=== PATIENT | female | born 1975 | race Caucasian/White ===

== ENCOUNTER 2018-03-20 01:45 | Emergency (ER) | payer BC ==
[2018-03-20] MEDS ORDERED: ACETAMINOPHEN 325 MG TABLET PO ONE (04:50)
[2018-03-20] MEDS ORDERED: IBUPROFEN 600 MG TABLET PO ONE (04:50)
--- NOTE | 2018-03-20 04:54 | ER Document Report ---
Addendum entered and electronically signed by RIANNA DOMINIQUE FNP 03/20/18 08:03: Course - Re-evaluation Re-evalutation: 03/20/18 04:50 Based off patient's physical exam, she will be sent for a CT of the face to rule out any acute process with her facial edema. She does have acute otitis externa to her left ear. She does have acute otitis media to the same ear, which she has already been diagnosed with and has started treatment with azithromycin. She will be given Motrin and Tylenol for pain control. - Vital Signs Vital signs: Temp Pulse Resp BP Pulse Ox 97.8 F 78 18 164/81 H 94 03/20/18 06:38 03/20/18 06:38 03/20/18 06:38 03/20/18 06:38 03/20/18 06:38 Original Note: ED General - General TRAVEL OUTSIDE OF THE [place] IN LAST 30 DAYS: No <RIANNA DOMINIQUE - Last Filed: 03/20/18 06:22> <MILADIS DAVE - Last Filed: 03/20/18 06:53> - General Chief Complaint: Ear Pain Stated Complaint: EAR PAIN Time Seen by Provider: 03/20/18 04:18 Notes: Patient is a 42-year-old female who presents to the emergency department with a chief complaint of left ear pain. She was diagnosed with an ear infection and placed on azithromycin 2 days ago. She states that her pain is worse and she has noticed some swelling to her left side of her face. She states the pain makes it feel like her ear is going to burst. (RIANNA DOMINIQUE) - Related Data Allergies/Adverse Reactions: codeine Allergy (Verified 03/20/18 01:57) naproxen Allergy (Verified 03/20/18 01:57) Penicillins Allergy (Verified 03/20/18 01:57) Past Medical History - Social History Smoking Status: Unknown if Ever Smoked Patient has suicidal ideation: No Patient has homicidal ideation: No Renal/ Medical History: Denies: Hx Peritoneal Dialysis <RIANNA DOMINIQUE - Last Filed: 03/20/18 06:22> - Social History Family History: Reviewed & Not Pertinent <MILADIS DAVE - Last Filed: 03/20/18 06:53> - Vital signs Vitals: Temp Pulse Resp BP Pulse Ox 98.4 F 79 16 168/87 H 98 03/20/18 02:32 03/20/18 02:32 03/20/18 02:32 03/20/18 02:32 03/20/18 02:32 Course <RIANNA DOMINIQUE - Last Filed: 03/20/18 06:22> <MILADIS DAVE - Last Filed: 03/20/18 06:53> - Re-evaluation Re-evalutation: 03/20/18 06:00 Dr. Lopez, the radiologist called and noticed there was nodules in the patient's parotid glands. 03/20/18 06:[address] Dave in regards to this case. He evaluated the patient and spoke to Dr. oLpez in regards to the patient's CT results. Dr. Lopez was updated on the clinical picture of the patient having an ear infection. Dr. Daev evaluate the patient and discussed plan of care to follow-up with ENT today. She will also be started on clindamycin and Ciprodex for her otitis externa. Verbal discharge instructions were given by Dr. Dave. The patient verbalized understanding and is in agreement's with the plan. She is stable for discharge. (RIANNA DOMINIQUE) 03/20/18 06:49 Patient was initially seen by the nurse practitioner, Rianna dominique. She informed me of the CT scan read and therefore I went to evaluate the patient. Patient was recently diagnosed with a otitis media. She was placed on azithromycin. Patient says her symptoms did start with ear pain. Over the last 2 days she has had some swelling over the the anterior aspect of face just anterior to the ear itself. There is some concern is she has some pain over the mastoid however on my evaluation she does not have any swelling or redness over the mastoid she is just minimally tender all around the ear itself. When I pull on the pinna of the ear she does have pain and on exam she does have swelling of the ear canal consistent with an otitis externa as well. Her findings look consistent with an otitis externa with some associated swelling and lymphadenopathy. CT scan does show bilateral nodules in the parotid glands which is atypical being that they are bilaterally enlarged. I did therefore call and speak with Dr. Lopez, radiologist, reviewed the films with him being that he recommended multiple further CT scans. Informed him of my clinical impression of the patient is agreeable to the patient does appear to have some information of soft tissues of the ear consistent with otitis externa. He says the only thing that is all is that she does have the bilateral large nodules even though her clinical findings on her left side. At this time I informed her that I prefer not to pose the patient a large amount of radiation especially since her symptoms are fairly acute onset within the last few days and seem to be infectious in etiology and therefore we will treat her with antibiotics and then have her follow-up with ENT to review the findings on CT scan and also to reevaluate her to see if further imaging is really warranted. Did review this plan with the patient. Patient agrees that she does not want to undergo further CT scans today and does not want the extra exposure to radiation and she agrees to follow-up very closely with ENT. I informed her that this is important to rule out other possible etiologies of the nodules in the parotid glands and also so that we can make sure that her swelling and symptoms improved with the treatment that we are prescribing her. I will change her antibiotic from azithromycin to clindamycin as this will give better staph coverage. We will place her on anabolic eardrops for otitis externa. I informed her the strict importance of following up with the ENT physician. I encouraged her return to ER if she has worsening swelling or fevers. Patient agrees with plan and will be discharged home. Dictation of this chart was performed using voice recognition software; therefore, there may be some unintended grammatical errors. (MILADIS DAVE) - Vital Signs Vital signs: Temp Pulse Resp BP Pulse Ox 97.8 F 78 18 164/81 H 94 03/20/18 06:38 03/20/18 06:38 03/20/18 06:38 03/20/18 06:38 03/20/18 06:38 Discharge <RIANNA DOMINIQUE - Last Filed: 03/20/18 06:22> <MILADIS DAVE - Last Filed: 03/20/18 06:53> - Discharge Clinical Impression: Otitis externa Qualifiers: Otitis externa type: unspecified type Chronicity: acute Laterality: left Qualified Code(s): H60.502 - Unspecified acute noninfective otitis externa, left ear Otitis media Qualifiers: Otitis media type: unspecified Chronicity: acute Qualified Code(s): H66.90 - Otitis media, unspecified, unspecified ear Condition: Stable Disposition: HOME, SELF-CARE Additional Instructions: You were seen today in the emergency department for left ear pain. You have otitis externa, and infection of your outer ear. The infection has spread to your jaw, therefore you have been put on clindamycin, an antibiotic to help with your symptoms. Please stop taking your azithromycin. You have also been prescribed antibiotics/steroid eardrops. Place 4 drops to each ear twice a day. Please follow-up today with the ear, nose, and throat doctor below. Please try to make an appointment today. Let them know that you were seen here in the emergency department. If you develop a fever greater than 100.4 F, develop some vomiting, have worsening swelling of your face, or have any symptoms that are worrisome to you, please return to the emergency department. Prescriptions: Ciprofloxacin HCl/Dexameth [Ciprodex Otic Suspension 7.5 ml Bottle] 4 drop OT BID 7 Days #1 bottle Clindamycin HCl [Cleocin 150 mg Capsule] 300 mg PO Q6 7 Days #56 capsule Forms: Return to Work Referrals: JAMES HOOD DO [ASSOCIATE] - 03/20/18
--- NOTE | 2018-03-20 05:54 | RADIOLOGY REPORT (SQ) ---
EXAM DESCRIPTION: CT MAXILLOFACIAL WITHOUT IV CONTRAST COMPLETED DATE/TME: 03/20/2018 04:52 CLINICAL HISTORY: 42 years Female, left side facial swelling, L mastoid pain L ear ache Comparison: None. Technique: No contrast. Coronal and sagittal reformat. This exam was performed according to our departmental dose-optimization program, which includes automated exposure control, adjustment of the mA and/or kV according to patient size and/or use of iterative reconstruction technique.[facility]: Dose Right [facility]: CareDose [facility]: Dose Right [facility]: Teradose 4D [facility]: [place] LIMITATIONS: None Findings: Multiple bilateral parotid soft tissue nodules measure up to 1.2 cm each. Moderate bilateral submandibular and cervical lymphadenopathy. 2.4 cm right maxillary retention cyst/mucocele. No sialolith. Facial bones including orbits, nasal bone, paranasal sinuses, and pterygoid plates appear otherwise intact. Unremarkable partially visualized inferior cranium, temporal bone, and upper neck. IMPRESSION: Multiple bilateral parotid soft tissue nodules measure up to 1.2 cm each. Moderate bilateral submandibular and cervical lymphadenopathy. Differential diagnosis includes metastatic disease, lymphoma, and other infectious, inflammatory/Sjogren syndrome processes. Consider further evaluation with contrast CT of the chest and neck.
[2018-03-20 06:39] VITALS: BP 164/81
== END 2018-03-20 06:39 | disposition home or self-care (01) ==
LOC: ER 01:45
DX: H60.502 Unspecified acute noninfective otitis externa, left ear (principal); H66.90 Otitis media, unspecified, unspecified ear; H92.02 Otalgia, left ear; R22.0 Localized swelling, mass and lump, head
CPT/HCPCS: 70486; 99282

== ENCOUNTER → 2018-05-22 | Outpatient (CLI) | payer BC ==
--- NOTE | 2018-05-22 16:16 | RADIOLOGY REPORT (SQ) ---
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 Reconstructed coronal and sagittal MPR images reviewed. All images stored on PACS. All CT scanners at this facility use dose modulation, iterative reconstruction, and/or weight based d osing when appropriate to reduce radiation dose to as low as reasonably achievable (ALARA). [facility]: Dose Right [facility]: CareDose [facility]: Dose Right [facility]: Teradose 4D [facility]: [place] CONTRAST TYPE AND DOSE: contrast/concentration: Isovue 350.00 mg/ml; Total Contrast Delivered: 75.0 ml; Total Saline Delivered: 55.0 ml RENAL FUNCTION: GFR > 60. RADIATION DOSE: 25 mGy . LIMITATIONS: None. FINDINGS: SKULL BASE: Inferior brain parenchyma unremarkable MAJOR SALIVARY GLANDS: On the right side, the parotid gland is normal size. Multiple nodules in the right parotid gland are present, and enhancing to a slightly higher degree than the adjacent parotid gland, with central hilar fat, likely small intraparotid lymph nodes. These are as follows: 11 x 7 mm, superficial lobe just lateral to the right facial vein axial image 34 12 x 10 mm superficial lobe axial image 35 12 x 12 mm in size inferior aspect right superficial lobe parotid gland axial image 41 10 x 7 mm periparotid lymph node in the subcutaneous fat axial image 30 On the left side, the parotid gland is normal size. 12 x 8 mm nodule in the superficial lobe parotid gland axial image 30. 9 x 6 mm intraparotid lymph node inferiorly, along the superficial lobe best shown on axial image 37 and sagittal image 89. Submandibular glands are unremarkable. No sialolith. Sublingual glands are unremarkable. LYMPHADENOPATHY: No adenopathy. MUCOSAL MASSES OR ASYMMETRY: No mucosal masses or asymmetry. LARYNX/CORDS: No abnormal findings. VASCULAR STRUCTURES: The major vessels are patent. LUNG APICES: Clear. BONES: Intact. THYROID: Normal size. No masses. PARANASAL SINUSES: Mucus or serous retention cyst right maxillary sinus OTHER: No other significant finding. IMPRESSION: Multiple periparotid and intraparotid lymph nodes bilaterally. TECHNICAL DOCUMENTATION: JOB ID: [id number] Quality ID # [id number]: Final reports with documentation of one or more dose reduction techniques (e.g., Au tomated exposure control, adjustment of the mA and/or kV according to patient size, use of iterative reconstruction technique) 2010 [employer] All Rights Reserved Reading location - IP/workstation name: [email or web address] [email or web address]
== END ==
LOC: RAD 15:25
PROVIDERS: ATTEND Otolaryngology
DX: K11.1 Hypertrophy of salivary gland (principal)
CPT/HCPCS: 70491; 82565

== ENCOUNTER → 2018-05-22 | Outpatient (CLI) | payer BC | LOC: OD 09:51 | PROVIDERS: ATTEND Otolaryngology | DX: J30.9 Allergic rhinitis, unspecified (principal) | CPT/HCPCS: 36415; 82785; 86003 ==